=== PATIENT | male | born 1945 | race Caucasian/White ===

== ENCOUNTER 2022-08-16 12:57 | Inpatient (IN) | payer OTHER ==
[~2022-08-16] VITALS: Ht 185.4 cm; Wt 112.9 kg
[2022-08-16] MEDS ORDERED: ACETAMINOPHEN TAB 650MG DOSE (2X325MG) PO ONE (13:10)
[2022-08-16 13:48] LABS: BASO % 0.2 % (0.0-1.0); HEMATOCRIT 46.9 % (42.0-52.0); HEMOGLOBIN 15.8 g/dl (13.5-17.5); LYMPH # 0.3 10^3/uL (1.5-5.0); LYMPH % 3.8 % (24.0-44.0); MEAN CORPUSCULAR HEMOGLOBIN 33.3 pg (27.0-33.0); MEAN CORPUSCULAR HGB CONC 33.7 g/dl (32.0-36.5); MEAN CORPUSCULAR VOLUME 98.9 fl (80.0-96.0); MONO # 0.5 10^3/uL (0.0-0.8); MONO % 5.5 % (2.0-8.0); NEUTROPHILS # 7.7 10^3/uL (1.5-8.5); NEUTROPHILS % 89.7 % (36.0-66.0); PLATELET COUNT, AUTOMATED 155 10^3/uL (150-450); RED BLOOD COUNT 4.74 10^6/uL (4.30-6.10); WHITE BLOOD COUNT 8.6 10^3/uL (4.0-10.0)
[2022-08-16 14:16] LABS: MAGNESIUM LEVEL 1.6 MG/DL (1.8-2.4)
[2022-08-16 14:21] LABS: THYROID STIMULATING HORMONE 0.72 uIU/ML (0.55-4.78)
[2022-08-16 14:31] LABS: ALBUMIN 2.8 G/DL (3.2-5.2); ALKALINE PHOSPHATASE 109 U/L (46-116); ALT/SGPT 52 U/L (7.0-40); AST/SGOT 53 U/L (<34); BILIRUBIN,DIRECT 0.8 MG/DL (<0.4); BILIRUBIN,TOTAL 1.8 MG/DL (0.3-1.2); BLOOD UREA NITROGEN 17 MG/DL (9-23); CARBON DIOXIDE LEVEL 25 MMOL/L (20-31); CHLORIDE LEVEL 105 MMOL/L (98-107); CREATININE FOR GFR 0.87 MG/DL (0.70-1.30); GLOMERULAR FILTRATION RATE > 60.0 (>42); GLUCOSE, FASTING 119 MG/DL (74-106); POTASSIUM SERUM 3.6 MMOL/L (3.5-5.1); SODIUM LEVEL 137 MMOL/L (136-145); TOTAL PROTEIN 6.2 G/DL (5.7-8.2)
[2022-08-16 14:41] LABS: ABG pH (ARTERIAL) 7.396 UNITS (7.350-7.450)
[2022-08-16 14:42] LABS: ABG BASE EXCESS -1.9 (-2.0-2.0); ABG HCO3 22.5 MEQ/L (22.0-26.0); ABG O2 SATURATION 95.2 % (95.0-99.0); ABG PARTIAL PRESSURE CO2 37.5 mmHg (35.0-45.0); ABG PARTIAL PRESSURE O2 72.2 mmHg (75.0-100.0); ABG STANDARD HCO3 22.9 MEQ/L (22.0-26.0); ABG TOTAL CO2 23.7 MEQ/L (23.0-31.0)
[2022-08-16] MEDS ORDERED: ISOVUE-370 76% 100ML VIAL As Ordered ONE (15:04)
[2022-08-16] MEDS ORDERED: ALBUTEROL 90 MCG/ACT 8GM HFA INHALER INH PRN ×2 (17:40→19:50)
[2022-08-16] MEDS ORDERED: ALBUTEROL SULFATE 2.5MG/0.5ML INH NEB SOLN NEB PRN (17:40)
[2022-08-16] MEDS ORDERED: ACETAMINOPHEN TAB 650MG DOSE (2X325MG) PO PRN (17:40)
[2022-08-16] MEDS ORDERED: MOM 30ML SUSPENSION UDC PO PRN (17:40)
[2022-08-16] MEDS ORDERED: MAALOX 30 ML SUSP *UDC PO PRN (17:40)
[2022-08-16] MEDS ORDERED: VENTAER INH (18:56)
[2022-08-16] MEDS ORDERED: DILT1TAB7 PO (19:44)
[2022-08-16] MEDS ORDERED: KP F1200 PO (19:44)
[2022-08-16] MEDS ORDERED: REFR0.5D8 OU (19:44)
[2022-08-16] MEDS ORDERED: FURO80TA2 PO (19:44)
[2022-08-16] MEDS ORDERED: ATOR40TA75 PO (19:44)
[2022-08-16] MEDS ORDERED: ELIQ5TAB PO (19:44)
[2022-08-16] MEDS ORDERED: FLOM0.4C39 PO (19:44)
[2022-08-16] MEDS ORDERED: STIO1AER IN (19:44)
[2022-08-16] MEDS ORDERED: D-101000 PO (19:44)
[2022-08-16] MEDS ORDERED: FLON1SPR NARES (19:44)
[2022-08-16] MEDS ORDERED: K-TA10TA2 PO (19:44)
[2022-08-16] MEDS ORDERED: ASPI81TA26 PO (19:45)
[2022-08-16] MEDS ORDERED: HOME MED LIST COMPLETE! XX SCH (19:45)
[2022-08-16 20:00] VITALS: BP 100/58; O2SAT 97
[2022-08-16] MEDS: NS 1,000 ML IV SCH (20:07)
[2022-08-16] MEDS: SYMBICORT 160/4.5MCG INHALER 6GM INH SCH (20:10)
[2022-08-16] MEDS: MAG SULF 1GM/100ML (MAG RUN) 1 GM in IV 1 EA IV SCH ×3 (20:17→23:20)
[2022-08-16] MEDS: APIXABAN 5 MG TAB (ELIQUIS) PO SCH (20:20)
[2022-08-16] MEDS: DOCUSATE SODIUM 100MG CAPSULE PO SCH (20:21)
[2022-08-16 21:00] VITALS: O2SAT 93
[2022-08-16] MEDS ORDERED: cefTRIAXone SOD 2 GM in D5W MINI-BAG PLUS 50 ML IV ONE (21:00)
[2022-08-16 22:00] VITALS: O2SAT 96
[2022-08-16] MEDS: FLUTICASONE PROP 0.05% NASAL SPRAY 16 GM (FLONASE) NARES SCH (22:08)
[2022-08-16 23:00] VITALS: O2SAT 96
[2022-08-17] VITALS (26 sets, daily range): BP systolic 82–126; BP diastolic 52–78; O2SAT 91–97
[2022-08-17] MEDS: MAG SULF 1GM/100ML (MAG RUN) 1 GM in IV 1 EA IV SCH (00:34)
[2022-08-17] MEDS: NS 1,000 ML IV SCH (04:54)
[2022-08-17 05:57] LABS: BASO % 0.2 % (0.0-1.0); HEMATOCRIT 45.1 % (42.0-52.0); HEMOGLOBIN 14.9 g/dl (13.5-17.5); LYMPH # 0.7 10^3/uL (1.5-5.0); LYMPH % 10.8 % (24.0-44.0); MEAN CORPUSCULAR HEMOGLOBIN 32.7 pg (27.0-33.0); MEAN CORPUSCULAR VOLUME 99.1 fl (80.0-96.0); MONO # 0.6 10^3/uL (0.0-0.8); MONO % 8.5 % (2.0-8.0); NEUTROPHILS # 5.2 10^3/uL (1.5-8.5); NEUTROPHILS % 79.9 % (36.0-66.0); PLATELET COUNT, AUTOMATED 141 10^3/uL (150-450); RED BLOOD COUNT 4.55 10^6/uL (4.30-6.10); WHITE BLOOD COUNT 6.5 10^3/uL (4.0-10.0)
[2022-08-17 06:41] LABS: BLOOD UREA NITROGEN 17 MG/DL (9-23); CALCIUM LEVEL 7.6 MG/DL (8.3-10.6); CARBON DIOXIDE LEVEL 24 MMOL/L (20-31); CHLORIDE LEVEL 108 MMOL/L (98-107); CREATININE FOR GFR 0.68 MG/DL (0.70-1.30); GLOMERULAR FILTRATION RATE > 60.0 (>42); GLUCOSE, FASTING 137 MG/DL (74-106); MAGNESIUM LEVEL 2.3 MG/DL (1.8-2.4); SODIUM LEVEL 140 MMOL/L (136-145)
[2022-08-17] MEDS: SYMBICORT 160/4.5MCG INHALER 6GM INH SCH ×2 (07:36→20:08)
[2022-08-17] MEDS: ATORVASTATIN 20 MG TAB PO SCH (07:57)
[2022-08-17] MEDS: cefTRIAXone SOD 1 GM in D5W MINI-BAG PLUS 50 ML IV SCH (07:57)
[2022-08-17] MEDS: ASPIRIN 81MG ENTERIC TABLET PO SCH (07:57)
[2022-08-17] MEDS: DOCUSATE SODIUM 100MG CAPSULE PO SCH ×2 (07:58→20:26)
[2022-08-17] MEDS: APIXABAN 5 MG TAB (ELIQUIS) PO SCH ×2 (07:58→20:26)
[2022-08-17] MEDS: TAMSULOSIN 0.4 MG CAP PO SCH (07:58)
[2022-08-17] MEDS: FLUTICASONE PROP 0.05% NASAL SPRAY 16 GM (FLONASE) NARES SCH (20:26)
[2022-08-18] VITALS (21 sets, daily range): BP systolic 101–122; BP diastolic 58–84; O2SAT 84–96
[2022-08-18 05:12] LABS: BASO % 0.3 % (0.0-1.0); EOS % 0.1 % (0.0-3.0); HEMATOCRIT 42.9 % (42.0-52.0); HEMOGLOBIN 14.5 g/dl (13.5-17.5); LYMPH # 1.3 10^3/uL (1.5-5.0); LYMPH % 17.2 % (24.0-44.0); MEAN CORPUSCULAR HEMOGLOBIN 33.3 pg (27.0-33.0); MEAN CORPUSCULAR HGB CONC 33.8 g/dl (32.0-36.5); MEAN CORPUSCULAR VOLUME 98.6 fl (80.0-96.0); MONO % 12.8 % (2.0-8.0); NEUTROPHILS # 5.3 10^3/uL (1.5-8.5); NEUTROPHILS % 69.2 % (36.0-66.0); PLATELET COUNT, AUTOMATED 157 10^3/uL (150-450); RED BLOOD COUNT 4.35 10^6/uL (4.30-6.10); WHITE BLOOD COUNT 7.7 10^3/uL (4.0-10.0)
[2022-08-18 05:38] LABS: BLOOD UREA NITROGEN 15 MG/DL (9-23); CALCIUM LEVEL 8.1 MG/DL (8.3-10.6); CARBON DIOXIDE LEVEL 24 MMOL/L (20-31); CHLORIDE LEVEL 107 MMOL/L (98-107); CREATININE FOR GFR 0.72 MG/DL (0.70-1.30); GLOMERULAR FILTRATION RATE > 60.0 (>42); GLUCOSE, FASTING 98 MG/DL (74-106); POTASSIUM SERUM 3.8 MMOL/L (3.5-5.1); SODIUM LEVEL 139 MMOL/L (136-145)
[2022-08-18] MEDS: cefTRIAXone SOD 1 GM in D5W MINI-BAG PLUS 50 ML IV SCH (09:01)
[2022-08-18] MEDS: APIXABAN 5 MG TAB (ELIQUIS) PO SCH ×2 (09:03→20:02)
[2022-08-18] MEDS: DOCUSATE SODIUM 100MG CAPSULE PO SCH ×2 (09:03→20:02)
[2022-08-18] MEDS: ASPIRIN 81MG ENTERIC TABLET PO SCH (09:03)
[2022-08-18] MEDS: ATORVASTATIN 20 MG TAB PO SCH (09:03)
[2022-08-18] MEDS: TAMSULOSIN 0.4 MG CAP PO SCH (09:03)
[2022-08-18] MEDS: SYMBICORT 160/4.5MCG INHALER 6GM INH SCH ×2 (09:38→19:21)
[2022-08-18] MEDS: FLUTICASONE PROP 0.05% NASAL SPRAY 16 GM (FLONASE) NARES SCH (21:50)
[2022-08-19] VITALS (7 sets, daily range): BP systolic 96–126; BP diastolic 52–78; O2SAT 95
[2022-08-19] MEDS ORDERED: NS 500 ML IV ONE (02:15)
[2022-08-19 06:58] LABS: BASO % 0.5 % (0.0-1.0); EOS # 0.1 10^3/uL (0.0-0.5); EOS % 0.9 % (0.0-3.0); HEMATOCRIT 42.9 % (42.0-52.0); HEMOGLOBIN 14.1 g/dl (13.5-17.5); LYMPH # 1.6 10^3/uL (1.5-5.0); LYMPH % 28.8 % (24.0-44.0); MEAN CORPUSCULAR HEMOGLOBIN 32.5 pg (27.0-33.0); MEAN CORPUSCULAR HGB CONC 32.9 g/dl (32.0-36.5); MEAN CORPUSCULAR VOLUME 98.8 fl (80.0-96.0); MONO # 0.8 10^3/uL (0.0-0.8); MONO % 13.6 % (2.0-8.0); NEUTROPHILS # 3.1 10^3/uL (1.5-8.5); NEUTROPHILS % 55.8 % (36.0-66.0); PLATELET COUNT, AUTOMATED 170 10^3/uL (150-450); RED BLOOD COUNT 4.34 10^6/uL (4.30-6.10); WHITE BLOOD COUNT 5.5 10^3/uL (4.0-10.0)
[2022-08-19 07:23] LABS: BLOOD UREA NITROGEN 12 MG/DL (9-23); CARBON DIOXIDE LEVEL 26 MMOL/L (20-31); CHLORIDE LEVEL 109 MMOL/L (98-107); CREATININE FOR GFR 0.69 MG/DL (0.70-1.30); GLOMERULAR FILTRATION RATE > 60.0 (>42); GLUCOSE, FASTING 89 MG/DL (74-106); POTASSIUM SERUM 3.6 MMOL/L (3.5-5.1); SODIUM LEVEL 142 MMOL/L (136-145)
[2022-08-19] MEDS: SYMBICORT 160/4.5MCG INHALER 6GM INH SCH (07:34)
[2022-08-19] MEDS: APIXABAN 5 MG TAB (ELIQUIS) PO SCH (08:18)
[2022-08-19] MEDS: cefTRIAXone SOD 1 GM in D5W MINI-BAG PLUS 50 ML IV SCH (08:18)
[2022-08-19] MEDS: ATORVASTATIN 20 MG TAB PO SCH (08:19)
[2022-08-19] MEDS: TAMSULOSIN 0.4 MG CAP PO SCH (08:19)
[2022-08-19] MEDS: ASPIRIN 81MG ENTERIC TABLET PO SCH (08:19)
[2022-08-19] MEDS: DOCUSATE SODIUM 100MG CAPSULE PO SCH (08:19)
[2022-08-19] MEDS ORDERED: AMOX875T2 PO (11:15)
[2022-08-19] MEDS ORDERED: PROB250C PO (11:17)
== END 2022-08-19 13:26 | disposition home or self-care (01) | DRG 689 ==
LOC: EDBD 12:57 → M ED 12:57 → M ED INP 18:11 → ENRESERV 18:29 → M PCU 19:40 → M MSPAV 08-18 16:25
PROVIDERS: ADMIT Internal Medicine; ATTEND Internal Medicine
PROC: B246ZZZ Ultrasonography of Right and Left Heart (ICD-10-PCS; principal; 2022-08-19)
DX: N39.0 Urinary tract infection, site not specified (principal); G93.41 Metabolic encephalopathy; R78.81 Bacteremia; I10 Essential (primary) hypertension; G47.33 Obstructive sleep apnea (adult) (pediatric); J44.9 Chronic obstructive pulmonary disease, unspecified; N20.0 Calculus of kidney; Z66 Do not resuscitate; I25.2 Old myocardial infarction; R26.89 Other abnormalities of gait and mobility; I71.43 Infrarenal abdominal aortic aneurysm, without rupture; I71.21 Aneurysm of the ascending aorta, without rupture; E83.42 Hypomagnesemia; K59.00 Constipation, unspecified; I25.10 Atherosclerotic heart disease of native coronary artery without angina pectoris; I48.0 Paroxysmal atrial fibrillation; Z85.828 Personal history of other malignant neoplasm of skin; Z90.49 Acquired absence of other specified parts of digestive tract; Z79.01 Long term (current) use of anticoagulants; Z79.82 Long term (current) use of aspirin; Z79.899 Other long term (current) drug therapy; Z20.822 Contact with and (suspected) exposure to COVID-19; Z71.6 Tobacco abuse counseling

== ENCOUNTER → 2022-11-29 | Outpatient (REF) | payer OTHER ==
[~2022-11-29] MED LIST: AMOX875T2 PO; ASPI81TA26 PO; ATOR40TA75 PO; D-101000 PO; DILT1TAB7 PO; ELIQ5TAB PO; FLOM0.4C39 PO; FLON1SPR NARES; FURO80TA2 PO; KP F1200 PO; POTA-165 PO; PROB250C PO; REFR0.5D8 OU; STIO1AER IN; VENTAER INH
== END ==
LOC: M LABSMT 08:50
PROVIDERS: ATTEND Urology
DX: Z53.9 Procedure and treatment not carried out, unspecified reason (principal)

== ENCOUNTER 2022-12-11 12:07 | Inpatient (IN) | payer OTHER ==
[~2022-12-11] VITALS: Ht 185.4 cm; Wt 104.2 kg
[2022-12-11] MEDS ORDERED: ACETAMINOPHEN 325 MG TAB PO ONE (12:25)
[2022-12-11 12:39] LABS: BASO # 0.1 10^3/uL (0.0-0.2); BASO % 0.3 % (0.0-1.0); HEMATOCRIT 50.3 % (42.0-52.0); HEMOGLOBIN 16.7 g/dl (13.5-17.5); LYMPH % 4.5 % (24.0-44.0); MEAN CORPUSCULAR HGB CONC 33.2 g/dl (32.0-36.5); MEAN CORPUSCULAR VOLUME 99.4 fl (80.0-96.0); MONO % 7.5 % (2.0-8.0); NEUTROPHILS # 19.2 10^3/uL (1.5-8.5); NEUTROPHILS % 86.9 % (36.0-66.0); PLATELET COUNT, AUTOMATED 256 10^3/uL (150-450); RED BLOOD COUNT 5.06 10^6/uL (4.30-6.10); WHITE BLOOD COUNT 22.1 10^3/uL (4.0-10.0)
[2022-12-11 12:52] LABS: MONO # 1.7 10^3/uL (0.0-0.8)
[2022-12-11 13:06] LABS: CPK CREATINE PHOSPHOKINASE 25 U/L (46-171)
[2022-12-11 13:07] LABS: ALKALINE PHOSPHATASE 113 U/L (46-116); ALT/SGPT 19 U/L (7.0-40); AST/SGOT 8 U/L (<34); BILIRUBIN,DIRECT 0.6 MG/DL (<0.4); BILIRUBIN,TOTAL 1.3 MG/DL (0.3-1.2); BLOOD UREA NITROGEN 17 MG/DL (9-23); CALCIUM LEVEL 8.8 MG/DL (8.3-10.6); CARBON DIOXIDE LEVEL 28 MMOL/L (20-31); CHLORIDE LEVEL 105 MMOL/L (98-107); CK-MB VALUE MASS < 1.0 NG/ML (<3.6); CREATININE FOR GFR 0.78 MG/DL (0.70-1.30); GLOMERULAR FILTRATION RATE > 60.0 (>42); GLUCOSE, FASTING 109 MG/DL (74-106); SODIUM LEVEL 138 MMOL/L (136-145); TOTAL PROTEIN 6.2 G/DL (5.7-8.2)
[2022-12-11 13:08] LABS: THYROXINE (T4) 10.3 UG/DL (4.5-10.9)
[2022-12-11 13:09] LABS: THYROID STIMULATING HORMONE 1.323 uIU/ML (0.55-4.78)
[2022-12-11] MEDS ORDERED: NS 500 ML IV ONE (13:45)
[2022-12-11 14:14] LABS: CK-MB VALUE MASS < 1.0 NG/ML (<3.6)
[2022-12-11 14:19] LABS: CPK CREATINE PHOSPHOKINASE 27 U/L (46-171)
[2022-12-11] MEDS ORDERED: cefTRIAXone SOD 1 GM in D5W MINI-BAG PLUS 50 ML IV ONE (14:20)
[2022-12-11] MEDS ORDERED: fentaNYL 100 MCG/2 ML INJECTION IV ONE (14:25)
[2022-12-11] MEDS ORDERED: MED REC IN PROGRESS XX SCH (14:35)
[2022-12-11] MEDS ORDERED: ACETAMINOPHEN TAB 650MG DOSE (2X325MG) PO PRN (15:05)
[2022-12-11] MEDS ORDERED: MOM 30ML SUSPENSION UDC PO PRN (15:05)
[2022-12-11] MEDS ORDERED: LR 1,000 ML IV ONE (16:00)
[2022-12-11 16:02] VITALS: BP 134/85; TEMP 98.5; O2SAT 93
[2022-12-11] MEDS ORDERED: NITR0.4S14 SL (16:04)
[2022-12-11] MEDS ORDERED: FINA5TAB2 PO (16:04)
[2022-12-11] MEDS ORDERED: FURO40TA2 PO (16:04)
[2022-12-11] MEDS ORDERED: HOME MED LIST COMPLETE! XX SCH (16:10)
[2022-12-11] MEDS ORDERED: ALBUTEROL 90 MCG/ACT 8GM HFA INHALER INH PRN (16:30)
[2022-12-11 16:33] VITALS: BP_SYST 106; BP_SYST 110; BP_SYST 137; BP_DIAS 60; BP_DIAS 68; BP_DIAS 75
[2022-12-11 16:54] LABS: INR 1.35; PROTHROMBIN TIME 16.9 SECONDS (12.5-14.5)
[2022-12-11] MEDS ORDERED: ISOVUE-370 76% 100ML VIAL As Ordered ONE (17:38)
[2022-12-11] MEDS: AZITHROMYCIN 250MG TABLET PO SCH (18:31)
[2022-12-11] MEDS: dilTIAZem **CD** 180MG CAP PO SCH (18:32)
[2022-12-11] MEDS: AMPICILLIN SOD/SULBACTAM SOD 3 GM in D5W MINI-BAG PLUS 100 ML IV SCH ×2 (18:33→22:19)
[2022-12-11 19:31] VITALS: BP 120/73; TEMP 97.9; O2SAT 94
[2022-12-11 19:40] VITALS: BP_SYST 116; BP_SYST 120; BP_SYST 122; BP_DIAS 61; BP_DIAS 66; BP_DIAS 73
[2022-12-11] MEDS: FLUTICASONE PROP 0.05% NASAL SPRAY 16 GM (FLONASE) NARES SCH (20:25)
[2022-12-11] MEDS: APIXABAN 5 MG TAB (ELIQUIS) PO SCH (20:25)
[2022-12-11] MEDS: DOCUSATE SODIUM 100MG CAPSULE PO SCH (20:25)
[2022-12-12 00:10] VITALS: BP 119/66; TEMP 97.6; O2SAT 92
[2022-12-12 03:45] VITALS: BP 128/69; TEMP 97.2; O2SAT 92
[2022-12-12] MEDS: AMPICILLIN SOD/SULBACTAM SOD 3 GM in D5W MINI-BAG PLUS 100 ML IV SCH ×2 (04:22→11:35)
[2022-12-12 07:02] LABS: BLOOD UREA NITROGEN 16 MG/DL (9-23); CALCIUM LEVEL 8.6 MG/DL (8.3-10.6); CARBON DIOXIDE LEVEL 27 MMOL/L (20-31); CHLORIDE LEVEL 106 MMOL/L (98-107); CREATININE FOR GFR 0.75 MG/DL (0.70-1.30); GLOMERULAR FILTRATION RATE > 60.0 (>42); GLUCOSE, FASTING 122 MG/DL (74-106); POTASSIUM SERUM 4.1 MMOL/L (3.5-5.1); SODIUM LEVEL 140 MMOL/L (136-145)
[2022-12-12 07:48] LABS: BASO % 0.1 % (0.0-1.0); HEMATOCRIT 48.4 % (42.0-52.0); HEMOGLOBIN 15.8 g/dl (13.5-17.5); LYMPH % 5.7 % (24.0-44.0); MEAN CORPUSCULAR HEMOGLOBIN 32.4 pg (27.0-33.0); MEAN CORPUSCULAR HGB CONC 32.6 g/dl (32.0-36.5); MEAN CORPUSCULAR VOLUME 99.2 fl (80.0-96.0); MONO # 1.1 10^3/uL (0.0-0.8); MONO % 6.5 % (2.0-8.0); NEUTROPHILS # 14.6 10^3/uL (1.5-8.5); PLATELET COUNT, AUTOMATED 262 10^3/uL (150-450); RED BLOOD COUNT 4.88 10^6/uL (4.30-6.10); WHITE BLOOD COUNT 16.7 10^3/uL (4.0-10.0)
[2022-12-12] MEDS: TIOTROPIUM INHALER/CAPSULE (SPIRIVA) INH SCH (08:16)
[2022-12-12 08:39] VITALS: BP 114/65; TEMP 97.4; O2SAT 95
[2022-12-12] MEDS: DOCUSATE SODIUM 100MG CAPSULE PO SCH ×2 (09:00→21:00)
[2022-12-12] MEDS: dilTIAZem **CD** 180MG CAP PO SCH (09:15)
[2022-12-12] MEDS: TAMSULOSIN 0.4 MG CAP PO SCH (09:15)
[2022-12-12] MEDS: APIXABAN 5 MG TAB (ELIQUIS) PO SCH ×2 (09:15→21:14)
[2022-12-12] MEDS: ASPIRIN 81MG ENTERIC TABLET PO SCH (09:15)
[2022-12-12] MEDS: ATORVASTATIN 20 MG TAB PO SCH (09:15)
[2022-12-12] MEDS: AZITHROMYCIN 250MG TABLET PO SCH (09:16)
[2022-12-12] MEDS: POTASSIUM CHLORIDE 10MEQ SR TABLET PO SCH (09:16)
[2022-12-12] MEDS: FINASTERIDE 5MG TAB PO SCH (09:16)
[2022-12-12] MEDS ORDERED: cefTRIAXone SOD 1 GM in D5W MINI-BAG PLUS 50 ML IV SCH (15:00)
[2022-12-12 17:35] VITALS: BP 122/67; TEMP 97.7; O2SAT 94
[2022-12-12] MEDS ORDERED: PREVNAR-20 VACCINE 0.5ML SYRINGE IM.IMMUN ONE (18:00)
[2022-12-12] MEDS: AUGMENTIN 875 MG TAB PO SCH (21:14)
[2022-12-12 22:18] VITALS: BP 117/73; TEMP 98.1; O2SAT 96
[2022-12-12] MEDS: FLUTICASONE PROP 0.05% NASAL SPRAY 16 GM (FLONASE) NARES SCH (23:24)
[2022-12-13 05:38] LABS: BASO # 0.1 10^3/uL (0.0-0.2); BASO % 0.4 % (0.0-1.0); EOS % 0.2 % (0.0-3.0); HEMATOCRIT 47.1 % (42.0-52.0); HEMOGLOBIN 15.7 g/dl (13.5-17.5); LYMPH # 1.7 10^3/uL (1.5-5.0); LYMPH % 13.5 % (24.0-44.0); MEAN CORPUSCULAR HEMOGLOBIN 32.9 pg (27.0-33.0); MEAN CORPUSCULAR HGB CONC 33.3 g/dl (32.0-36.5); MEAN CORPUSCULAR VOLUME 98.7 fl (80.0-96.0); MONO # 1.4 10^3/uL (0.0-0.8); MONO % 11.2 % (2.0-8.0); NEUTROPHILS # 9.5 10^3/uL (1.5-8.5); NEUTROPHILS % 74.2 % (36.0-66.0); PLATELET COUNT, AUTOMATED 248 10^3/uL (150-450); RED BLOOD COUNT 4.77 10^6/uL (4.30-6.10); WHITE BLOOD COUNT 12.8 10^3/uL (4.0-10.0)
[2022-12-13 06:00] VITALS: BP 113/71; TEMP 97.6; O2SAT 98
[2022-12-13 06:00] LABS: BLOOD UREA NITROGEN 18 MG/DL (9-23); CALCIUM LEVEL 9.5 MG/DL (8.3-10.6); CARBON DIOXIDE LEVEL 27 MMOL/L (20-31); CHLORIDE LEVEL 106 MMOL/L (98-107); CREATININE FOR GFR 0.76 MG/DL (0.70-1.30); GLOMERULAR FILTRATION RATE > 60.0 (>42); GLUCOSE, FASTING 90 MG/DL (74-106); POTASSIUM SERUM 4.1 MMOL/L (3.5-5.1); SODIUM LEVEL 139 MMOL/L (136-145)
[2022-12-13] MEDS: TIOTROPIUM INHALER/CAPSULE (SPIRIVA) INH SCH (07:25)
[2022-12-13] MEDS: DOCUSATE SODIUM 100MG CAPSULE PO SCH (07:52)
[2022-12-13] MEDS: ASPIRIN 81MG ENTERIC TABLET PO SCH (07:52)
[2022-12-13] MEDS: TAMSULOSIN 0.4 MG CAP PO SCH (07:57)
[2022-12-13] MEDS: POTASSIUM CHLORIDE 10MEQ SR TABLET PO SCH (07:58)
[2022-12-13] MEDS: AZITHROMYCIN 250MG TABLET PO SCH (07:58)
[2022-12-13] MEDS: FINASTERIDE 5MG TAB PO SCH (07:58)
[2022-12-13] MEDS: AUGMENTIN 875 MG TAB PO SCH (07:58)
[2022-12-13] MEDS: ATORVASTATIN 20 MG TAB PO SCH (07:58)
[2022-12-13] MEDS: APIXABAN 5 MG TAB (ELIQUIS) PO SCH (07:58)
[2022-12-13 08:00] VITALS: BP 103/66
[2022-12-13] MEDS: dilTIAZem **CD** 180MG CAP PO SCH (08:00)
[2022-12-13] MEDS ORDERED: AMOX875T2 PO ×2 (10:52→11:03)
== END 2022-12-13 12:12 | disposition home or self-care (01) | DRG 194 ==
LOC: EDBD 12:07 → M ED 12:07 → M ED INP 15:05 → ENRESERV 15:16 → M PCU 16:05 → M MSPAV 12-12 17:27
PROVIDERS: ADMIT Student in an Organized Health Care Education/Training Program; ATTEND Student in an Organized Health Care Education/Training Program
DX: J12.2 Parainfluenza virus pneumonia (principal); N39.0 Urinary tract infection, site not specified; I25.2 Old myocardial infarction; J44.9 Chronic obstructive pulmonary disease, unspecified; Z79.01 Long term (current) use of anticoagulants; F17.210 Nicotine dependence, cigarettes, uncomplicated; I10 Essential (primary) hypertension; N40.0 Benign prostatic hyperplasia without lower urinary tract symptoms; I95.1 Orthostatic hypotension; I27.20 Pulmonary hypertension, unspecified; I48.0 Paroxysmal atrial fibrillation; I25.10 Atherosclerotic heart disease of native coronary artery without angina pectoris; I71.40 Abdominal aortic aneurysm, without rupture, unspecified; K76.9 Liver disease, unspecified; R91.8 Other nonspecific abnormal finding of lung field; I65.21 Occlusion and stenosis of right carotid artery; Z79.899 Other long term (current) drug therapy; Z79.82 Long term (current) use of aspirin; E27.8 Other specified disorders of adrenal gland

== ENCOUNTER → 2023-07-12 | Outpatient (CLI) | payer OTHER ==
[~2023-07-12] MED LIST changes: +CEFD1CAP9 PO; +DIGO0.123 PO; +DOXY100T PO; +FINA5TAB2 PO; +FURO40TA2 PO; +ISOVUE-370 76% 100ML VIAL As Ordered ONE; +LEVO1TAB40 PO; +MOME110A INH; +NITR0.4S14 SL
== END ==
LOC: M RAD 08:13
PROVIDERS: ATTEND Nurse Practitioner Family
DX: I71.40 Abdominal aortic aneurysm, without rupture, unspecified (principal); Z95.5 Presence of coronary angioplasty implant and graft
CPT/HCPCS: 74174; Q9967

== ENCOUNTER → 2025-01-23 | Outpatient (CLI) | payer OTHER ==
[~2025-01-23] MED LIST changes: -FLOM0.4C39 PO; -ISOVUE-370 76% 100ML VIAL As Ordered ONE; +POTA10CA70 PO; +TAMS-18 PO
== END ==
LOC: M RAD 09:43
PROVIDERS: ATTEND Registered Nurse
DX: Z12.2 Encounter for screening for malignant neoplasm of respiratory organs (principal); Z87.891 Personal history of nicotine dependence